=== PATIENT | female | born 1960 | race African-American/Black ===

== ENCOUNTER 2016-12-27 12:48 | Emergency (ER) | payer OTHER ==
[~2016-12-27] VITALS: Ht 165.1 cm; Wt 76.0 kg
[~2016-12-27 12:48] MED LIST: CYAN1DRO SL; OXYC1SOL5 PO; PYRI25TA9 PO; VITA400C70 PO; [UNRECOGNIZED DRUG - OTHER] PO
[2016-12-27 12:54] VITALS: BP 184/93; PULSE 118; RESP 20; TEMP 99.6; O2SAT 97
[2016-12-27] MEDS ORDERED: SODIUM CHLOR 0.9% 1000 ML INJ 1,000 ML IV SCH (13:19)
[2016-12-27] MEDS ORDERED: VITA25TA PO (13:21)
[2016-12-27] MEDS ORDERED: VITA500S3 SL (13:21)
[2016-12-27] MEDS ORDERED: ST J150T PO (13:21)
[2016-12-27] MEDS ORDERED: NATU400T PO (13:21)
[2016-12-27] MEDS ORDERED: PANTOPRAZOLE SODIUM 40 MG VIAL IVP ONE (13:30)
[2016-12-27] MEDS ORDERED: FAMOTIDINE 20 MG/2 ML VIAL IV PUSH ONE (13:30)
[2016-12-27] MEDS ORDERED: ONDANSETRON HCL 4 MG/2 ML VIAL IVP ONE (13:30)
--- NOTE | 2016-12-27 13:33 | PD ---
HPI Chief Complaint: GI Complaint Time Seen by Provider: 13:29 Travel History International Travel<30 days: No Contact w/Intl Traveler<30days: No Traveled to known affect area: No History of Present Illness HPI 56-year-old female that presents to the ED for evaluation of nausea and vomiting and diarrhea since yesterday. Per patient yesterday she felt uneasy after she took some vitamins without eating anything. Per patient she went to [employer] and had some food there and she started feeling kind of queasy again but she continue her day and she went to seafood cookout of her families and after this she became more nauseous. And started vomiting having abdominal discomfort as well as back pain and diarrhea. Per patient most of her symptoms have improved. Per patient she was nausea and threw up most of the night. Per patient now she feels better but she is concerned because she still feels queasy and not 100%. She feels like there could be something else and she is wants to make sure everything is okay. She states that her bowel movements have been more solid today. She's not been able to eat anything because she just doesn't have the appetite. She is able to keep fluids down now. She hasn' t vomited since last night. No blood. Allergies to penicillin. No chest pain or shortness of breath. History of hysterectomy in the past. Pain at this time is 4 out of 10 and is worse on the back, actually on the abdomen. On the abdomen is 2 out of 10. Diffuse and not in one particular spot. PFSH Past Medical History Anemia: Yes Cancer: No Cardiovascular Problems: Yes (heart murmur) Diabetes: No Endocrine: No Gastrointestinal Disorders: Yes (HX IRRITABLE BOWEL SYNDROME) Genitourinary: No Hepatitis: No Hiatal Hernia: No Immune Disorder: No Musculoskeletal: No Neurologic: No Psychiatric: Yes (ANXIETY ) Respiratory: No Thyroid Disease: No ?: Not Past Surgical History Abdominal Surgery: No AICD: No Body Medical Devices: NONE Cardiac Surgery: No Ear Surgery: No Endocrine Surgery: No Eye Surgery: No Genitourinary Surgery: No Gynecologic Surgery: Yes (FAILED ABLATION THERAPY IN 'S OFFICE) Hysterectomy: Yes Joint Replacement: No Oral Surgery: No Pacemaker: No Thoracic Surgery: No Social History Alcohol Use: No Tobacco Use: No Substance Use: No Allergies-Medications (Allergen,Severity, Reaction): Coded Allergies: Penicillin (Verified Allergy, Severe, Nausea/Vomiting, 12/27/16) Reported Meds & Prescriptions Reported Meds & Active Scripts Active Bentyl (Dicyclomine HCl) 20 Mg Tab 20 Mg PO TID Zofran (Ondansetron HCl) 4 Mg Tab 4 Mg PO Q6HR PRN Reported Vitamin E 400 Unit Tab 800 Units PO DAILY Vitamin B-6 (Pyridoxine HCl) Unknown Strength Tab Unknown Dose PO DAILY St Garza Wort (John's Wort (Nikolai Perf) Unknown Strength Tab Unknown Dose PO DAILY Vitamin B-12 (Cyanocobalamin) 500 Mcg Subl 500 Mcg SL DAILY Review of Systems Except as stated in HPI: all other systems reviewed are Neg Physical Exam Narrative GENERAL: SKIN: Warm and dry. HEAD: Atraumatic. Normocephalic. EYES: Pupils equal and round. No scleral icterus. No injection or drainage. ENT: No nasal bleeding or discharge. Mucous membranes pink and moist. Tongue is midline. No uvula deviation. NECK: Trachea midline. No JVD. CARDIOVASCULAR: Regular rate and rhythm. No murmurs, S3, S4. RESPIRATORY: No accessory muscle use. Clear to auscultation. Breath sounds equal bilaterally. GASTROINTESTINAL: Abdomen soft, non-tender, nondistended. Hepatic and splenic margins not palpable. MUSCULOSKELETAL: Extremities without clubbing, cyanosis, or edema. No obvious deformities. Full range of motion of the upper and lower extremities bilaterally. 2+ pulses bilaterally. No lumbar, thoracic, cervical spine tenderness to palpation. NEUROLOGICAL: Awake and alert. No obvious cranial nerve deficits. Motor grossly within normal limits. Five out of 5 muscle strength in the arms and legs. Normal speech. PSYCHIATRIC: Appropriate mood and affect; insight and judgment normal. Data Data Last Documented VS Vital Signs Date Time Temp Pulse Resp B/P Pulse Ox O2 Delivery O2 Flow Rate FiO2 12/27/16 12:54 99.6 118 20 184/93 97 Room Air Orders Complete Blood Count With Diff (12/27/16 13:19) Comprehensive Metabolic Panel (12/27/16 13:19) Lipase (12/27/16 13:19) Urinalysis - C+S If Indicated (12/27/16 13:19) Iv Access Insert/Monitor (12/27/16 13:19) Ondansetron Inj (Zofran Inj) (12/27/16 13:30) Pantoprazole Inj (Protonix Inj) (12/27/16 13:30) Sodium Chlor 0.9% 1000 Ml Inj (Ns 1000 M (12/27/16 13:19) Famotidine Inj (Pepcid Inj) (12/27/16 13:30) Labs Laboratory Tests Test 12/27/16 13:25 White Blood Count 8.4 TH/MM3 Red Blood Count 5.15 MIL/MM3 Hemoglobin 14.8 GM/DL Hematocrit 45.1 % Mean Corpuscular Volume 87.6 FL Mean Corpuscular Hemoglobin 28.7 PG Mean Corpuscular Hemoglobin 32.7 % Concent Red Cell Distribution Width 14.0 % Platelet Count 161 TH/MM3 Mean Platelet Volume 10.1 FL Neutrophils (%) (Auto) 88.4 % Lymphocytes (%) (Auto) 5.8 % Monocytes (%) (Auto) 5.4 % Eosinophils (%) (Auto) 0.2 % Basophils (%) (Auto) 0.2 % Neutrophils # (Auto) 7.4 TH/MM3 Lymphocytes # (Auto) 0.5 TH/MM3 Monocytes # (Auto) 0.5 TH/MM3 Eosinophils # (Auto) 0.0 TH/MM3 Basophils # (Auto) 0.0 TH/MM3 CBC Comment DIFF FINAL Differential Comment Sodium Level 139 MEQ/L Potassium Level 3.5 MEQ/L Chloride Level 106 MEQ/L Carbon Dioxide Level 24.7 MEQ/L Anion Gap 8 MEQ/L Blood Urea Nitrogen 12 MG/DL Creatinine 0.91 MG/DL Estimat Glomerular Filtration 78 ML/MIN Rate Random Glucose 101 MG/DL Calcium Level 9.2 MG/DL Total Bilirubin 0.4 MG/DL Aspartate Amino Transf 31 U/L (AST/SGOT) Alanine Aminotransferase 36 U/L (ALT/SGPT) Alkaline Phosphatase 96 U/L Total Protein 7.8 GM/DL Albumin 4.0 GM/DL Lipase 149 U/L MDM Medical Decision Making Medical Screen Exam Complete: Yes Emergency Medical Condition: Yes Medical Record Reviewed: Yes Interpretation(s) CBC & BMP Diagram 12/27/16 13:25 LFTs and lipase within normal limits. Differential Diagnosis Acute gastroenteritis versus colitis versus gastritis versus food poisoning Narrative Course 56-year-old female that presents to the ED for evaluation of nausea vomiting and diarrhea. Patient was properly examined and was found to have signs and symptoms very consistent what appears to be acute gastroenteritis likely from food poisoning. At this time I recommend labs and IV fluids and medications. Patient is in agreement with this plan. Labs showed no sign of acute disease. Patient was reassured. This time this appears to be gastroenteritis. Case was discussed in my attending Dr. Thorpe who agrees with plan. Patient was given prescriptions for Zofran and Bentyl to use if needed. Otherwise I recommend liquid diet. Follow with PCP. See ED worsening symptoms. Diagnosis Primary Impression: Gastroenteritis Patient Instructions: General Instructions Additional Instructions: Take medications if needed. Complaining of fluids. Follow with PCP. See ED if worsening symptoms. Start eating slowly. Do not eat fast food until completely 100% back to normal. Med/Other Pt SpecificInfo: Prescription(s) given Scripts Dicyclomine (Bentyl)20 Mg Tab20 Mg PO TID #20 TAB Prov:James Thorpe MD 12/27/16 Ondansetron (Zofran)4 Mg Tab4 Mg PO Q6HR PRN (NAUSEA OR VOMITING) #14 TAB Prov:James Thorpe MD 12/27/16 Disposition: 01 DISCHARGE HOME Condition: Stable Doimnik Barksdale December 27, 2016 13:33
[2016-12-27 13:46] LABS: AUTOMATED NEUTROPHIL # 7.4 TH/MM3 (1.8-7.7); BASOPHIL % 0.2 % (0.0-2.0); EOSINOPHIL % 0.2 % (0.0-4.0); HEMATOCRIT 45.1 % (35.0-46.0); HEMO FLAGS DIFF FINAL; LYMPH % 5.8 % (9.0-44.0); LYMPHOCYTE # 0.5 TH/MM3 (1.0-4.8); MEAN CELL VOLUME 87.6 FL (80.0-100.0); MEAN CORPUSCULAR HEMOGLOBIN 28.7 PG (27.0-34.0); MEAN CORPUSCULAR HGB CONC 32.7 % (32.0-36.0); MONO % 5.4 % (0.0-8.0); NEUT % 88.4 % (16.0-70.0); PLATELET COUNT 161 TH/MM3 (150-450); RED BLOOD COUNT 5.15 MIL/MM3 (4.00-5.30); WHITE BLOOD COUNT 8.4 TH/MM3 (4.0-11.0)
[2016-12-27 14:00] VITALS: BP 169/82; PULSE 100; RESP 16; O2SAT 98
[2016-12-27 14:03] LABS: ALT (GPT) 36 U/L (10-53); ANION GAP 8 MEQ/L (5-15); AST (GOT) 31 U/L (15-37); BICARBONATE 24.7 MEQ/L (21.0-32.0); BLOOD UREA NITROGEN 12 MG/DL (7-18); CHLORIDE 106 MEQ/L (98-107); GLOMERULAR FILTRATION RATE 78 ML/MIN (>89); POTASSIUM 3.5 MEQ/L (3.5-5.1); SODIUM (NA) 139 MEQ/L (136-145)
[2016-12-27 14:06] LABS: ALKALINE PHOSPHATASE 96 U/L (45-117); TOTAL BILIRUBIN ADULT 0.4 MG/DL (0.2-1.0)
[2016-12-27] MEDS ORDERED: ZOFR4TAB PO (14:43)
[2016-12-27] MEDS ORDERED: BENT20TA PO (14:43)
[2016-12-27 15:19] LABS: BACTERIA, URINE RARE /hpf; BLOOD, URINE NEG (NEG); COMMENT (UR) CULT NOT INDICATED; CULTURE IF INDICATED CULT NOT INDICATED; GLUCOSE,URINE NEG (NEG); KETONE, URINE NEG (NEG); MUCUS URINE MOD /lpf (OCC); NITRITE,URINE NEG (NEG); SQUAMOUS EPITHELIAL CELL URINE <1 /hpf (0-5); URINE COLOR YELLOW (YELLW/STRAW)
== END 2016-12-27 15:30 | disposition home or self-care (01) ==
LOC: NEPE 12:48
DX: K52.9 Noninfective gastroenteritis and colitis, unspecified (principal)
CPT/HCPCS: 80053; 81001; 83690; 85025; 96374; 96375; 99284; C9113; J2405; J7030